=== PATIENT | female | born 1990 | race Two or more races ===

== ENCOUNTER 2025-04-12 22:34 | Emergency (ER) | payer OTHER, SELFPAY ==
--- OUTSIDE RECORDS SUMMARY | 2014-01-08 11:26 | XMS_ITS | Continuity of Care Document ---
Author Organization [facility] Address [address] [place] [address] Phone Care Team Providers Care Edge Stainer Name Role Phone Unavailable Unavailable Unavailable Allergies, [...] Diagnoses Date Provider Providers Copied on Encounter [facility] , [address] [place] [address], [id number] , [place] tel: [phone] [facility] No Information 4 No Information [facility] , [address] [place] [address], [id number] , [place] tel: [phone] [facility] routine (chief complaint)l eft without being seen (chief complaint) Dysuria 4 No Information OFFICE/OUTPA TIENT VISIT, [facility] , [address] [place] [address], [id number] , [place] tel: [phone] [facility] ER visit (chief complaint) Supervision of other normal 4 No Information OFFICE/OUTPA TIENT VISIT, [facility] , [address] [place] [address], [id number] , [place] tel: [phone] [facility] Supervision of other normal 4 No Information OFFICE/OUTPA TIENT VISIT, [facility] , [address] [place] [address], [id number] , [place] tel: [phone] [facility] 3hr GTT results (chief complaint)r verito (chief complaint)y east infection (chief complaint)n eeds vitamins (chief complaint) PregnancyContact dermatitis 4 No Information OFFICE/OUTPA TIENT VISIT, [facility] , [address] [place] [address], [id number] , [place] tel: [phone] [facility] vaginal discharge (chief complaint)O GTT in catagories (chief complaint) Supervision of other normal pregnancyAbnormal glucose tolerance of mother, antepartumRhesus isoimmunization, unspecified as to episode of care in 4 No Information OFFICE/OUTPA TIENT VISIT, [facility] , [address] [place] [address], [id number] , [place] tel:[phone] [facility] (chief complaint) Supervision of other normal 4 No Information OFFICE/OUTPA TIENT VISIT, [facility] , [address] [place] [address], [id number] , tel:[phone] [facility] vaginal discharge (chief complaint) Supervision of other normal 4 No Information OFFICE/OUTPA TIENT VISIT, [facility] , [address] [place] [address], [id number] , [place] tel: [phone] [facility] (chief complaint) Screening examination for unspecified bacterial and spirochetal diseasesSupervisi on of other normal 4 No Information OFFICE/OUTPA TIENT VISIT, [facility] , [address] [place] [address], [id number] , [place] tel: [phone] [facility] (chief complaint)n ausea (chief complaint) Supervision of other normal pregnancyMild hyperemesis gravidarum, unspecified as to episode of care 4 No Information OFFICE/OUTPA TIENT VISIT, [facility] , [address] [place] [address], [id number] , [place] tel:[phone] [facility] (chief complaint)v aginal discharge (chief complaint) examination or test, unconfirmedSuperv ision of other normal 4 No Information Family History Family Member Type Diagnosis Age At Onset No Information Payers Payer name Insurance type Covered republican ID Authoriza tion(s) No Information Social History Type Description Quantity Date Captured Comments Alcohol Use Details Unknown Caffeine Use Details Unknown Tobacco Use Status Smoking Status No Information Sex Female Yes - Patient is cur rently Chief Complaint And Reason For Visit No Information Reason For Referral Reason For Referral No Information Plan Of Treatment Date Type Action Status Referral Ordered: referred to Ostrich Farmer [facility] to Abnormal glucose tolerance of mother, antepartum) [id number] Ordered: Mary Simms OD (related to examination or test, unconfirm) [id number] Ordered: Varicella Appointment date/timeframe: 05/27/2013 [id number] Referred To: Mary Simms OD [address] [place], [address] [phone] Ordered: Referral: Mary Simms OD. Evaluate and [...]
[2025-04-12 22:41] VITALS: BP 121/78; PULSE 87; TEMP 36.6; O2SAT 97; BMI 33.2
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
--- OUTSIDE RECORDS SUMMARY | 2025-04-13 00:56 | XMS_ITS | Continuity of Care Document ---
Author Organization [facility] Address [facility] [address] [place] [address] Phone [phone] Care Team Providers Care Rn Staff Name Role Phone Jonny Castillo M.D. Care Team Information Rece iver Unavailable
--- OUTSIDE RECORDS SUMMARY | 2025-04-13 00:56 | XMS_ITS | Clinical Summary ---
Author Organization [facility] Address [address] [place] [address] Phone Care Team Providers Care Photo Journalist Name Role Phone Viktoriya Benavides COLD ROLLING COORDINATOR-[facility] Primary Care Provider [phone]- [phone] Allergies Active AllergyReactionsCriticalityNoted DateCommentsLactoseDiarrhea, Nausea/nrfjedco36/04/2859LbmfhapgoyQpuprpd79/19/2025PenicillinsUnknownLow 11/12/2011 Unknown reaction - patient stated this happened when she was very young; tolerates Keflex Unknown reaction - happened when she was very young Unknown reaction - happened when she was very young Medications MedicationSigDispense QuantityRefillsLast FilledStart DateEnd DateStatus ALPRAZolam (Xanax) 0.25 mg tablet Take 1 tablet (0.25 mg) by mouth 3 times a day.12/05/2023ctive ARIPiprazole (Abilify) 10 mg tablet Take 1 tablet (10 mg) by mouth once daily.Active buprenorphine-naloxone (Suboxone) 8-2 mg SL tablet DISSOLVE 1.5 TABS UNDER THE TONGUE ONCE DAILY08/24/2023ctive buPROPion XL (Wellbutrin XL) 150 mg 24 hr tablet TAKE 1 TABLET IN THE MORNING FOR 3 DAYS THEN INCREASE TO 2 TABLETS EVERY MORNING THEREAFTERActive dexmethylphenidate XR (Focalin XR) 30 mg 24 hr capsule Take 1 capsule (30 mg) by mouth early in the morning..11/29/2023ctive gabapentin (Neurontin) 600 mg tablet Take 1 tablet (600 mg) by mouth 3 times a day.Active metFORMIN XR 500 mg 24 hr tablet Take one tablet daily with dinner for 7 days, then increase to one tablet twice daily with breakfast and dinner.10/27/2023ctive omeprazole (PriLOSEC) [address] capsule TAKE 1 CAPSULE BY MOUTH TWO TIMES A DAY BEFORE MEALS.Active sertraline (Zoloft) 100 mg tablet Take 1 tablet (100 mg) by mouth once daily.Active topiramate (Topamax) 50 mg tablet Take one-half tablet daily at bedtime for 14 days, then increase to one tablet daily at bedtime.10/27/2023ctive lisdexamfetamine (Vyvanse) 40 mg capsule Take 1 capsule (40 mg) by mouth once daily in the morning.Active cyclobenzaprine (Flexeril) 5 mg tablet Indications:Left-sided low back pain without sciatica, unspecified chronicity Take 2 tablets (10 mg) by mouth every 8 hours if needed for muscle spasms for up to 15 doses. 15 tablet 01/31/2024ctive naproxen (Naprosyn) 500 mg tablet Indications:Left-sided low back pain without sciatica, unspecified chronicity Take 1 tablet (500 mg) by mouth every 12 hours if needed for mild pain (1 - 3) or moderate pain (4 - 6). 20 tablet 01/31/2024ctive ALPRAZolam (Xanax) 0.25 mg tablet Take 1 tablet (0.25 mg) by mouth 3 times a day.04/11/2024ctive ARIPiprazole (Abilify) 10 mg tablet Take 1 tablet (10 mg) by mouth once daily.03/24/2024ctive busPIRone (Buspar) 15 mg tablet 1 tablet (15 mg) 2 times a day.08/14/2023ctive buprenorphine-naloxone (Suboxone) 2-0.5 mg SL tablet 1 TABLET 4 TIMES A DAY 5 DAY08/14/2023ctive cyclobenzaprine (Flexeril) 5 mg tablet TAKE 2 TABLETS (10 MG) BY MOUTH EVERY 8 HOURS IF NEEDED FOR MUSCLE SPASMS FOR UP TO 15 DOSES.01/31/2024ctive Encounters DateTypeDepartmentCare XxqsYxnolrkemta67/28/2025 10:34 PM EDT - 03/19/2025 2:32 AM EDTEmergency [facility] [address] [place] [address] Mery Rendon MD Combs, Shauna M, Housing insecurity (Primary Dx); Pain of right hip Discharge Disposition: Homefrom Last 3 Months Social History Tobacco UseTypesPacks/DayYears UsedDateSmoking Tobacco: Every DayCigarettes Smokeless Tobacco: Current Tobacco Cessation:Ready to Q uit: Not Asked; Counseling Given: Not Answered Alcohol UseStandard Drinks/WeekCommentsNot Currently0 (1 standard drink = 0.6 oz pure alcohol)CommentsNoSex and Gender InformationValueDate RecordedSex Assigned at BirthNot on fileLegal EqqSsxqmf03/25/2022 7:26 PM ESTGender Identity Not on fileSexual OrientationNot on file Last Filed Vital Signs Vital SignReadingTime TakenCommentsBlood Zzlheooz616/6803/18/2025 9:50 PM EDT Skxre20227/28/2025 9:50 PM NGJLcfnotelzlk17.7 ??C (98.1 ??F)03/18/2025 9:50 PM EDTRespiratory Orqg9955 9:50 PM EDTOxygen Toyyfhniyr62%03/18/2025 9:50 PM EDTInhaled Oxygen Concentration--Noeasx43.8 kg (165 lb)03/18/2025 9:50 PM EDT Edceem384.4 cm (5')03/18/2025 9:50 PM EDTBody Mass Index32.221 9:50 PM EDT Plan of Treatment Health MaintenanceDue DateLast DoneCommentsLipid Panel1990MMR Vaccines (1 of 1 - Standard series)1991HPV/Cwsjjy2505/29/2011Yearly Adult Physical HPV Vaccines (3 - 3-dose series)/09/2023, 08/06/2016Influenza Vaccine (#1)2023, 03/21/2022, 05/22/2021, Additional history existsCOVID-19 Vaccine ( season)2025 07/25/2023, 05/05/2022, 03/07/2022, Additional history existsCervical Cancer Mfvtpiray15/19/2025Pap Smear512/2DTaP/Tdap/Td Vaccines (4 - Td or Tdap)/, 12/02/2014, 03/21/2000Zoster Vaccines (1 of 2) 2040HIV DigwtptmbHttyrfkku05/26/2022, 07/12/2017Meningococcal VaccineAged Out02/25/2022No longer eligible based on patient's age to complete this topic Pneumococcal Vaccine: Pediatrics and At-Risk Adult ZaqqfrxqNdepguskm01/17/2022 Hepatitis A VaccinesAged Out12/06/2022, 03/07/2022No longer eligible based on patient's age to complete this topicHepatitis B VbmmgaeiKwtxfqqvj08/18/2023, 05/05/2022, 03/08/2007, Additional history existsHIB VaccinesAged OutNo longer eligible based on patient's age to complete this topicIPV VaccinesAged OutNo longer eligible based on patient's age to complete this topicRotavirus Vaccines Aged OutNo longer eligible based on patient's age to complete this topic Medical Devices ImplantedTypeAreaManufacturerDevice IdentifierShelf Expiration DateModel / Serial / Harpreet Magdalena, 0.062 X 4 In, Stainless Steel Case [id number] Implanted:Qty: 2 on 04/15/2019 by Nitin Marrero MDImplantSKLNV [id number] / / Description:Converted from [facility]. Please see archived information for full log information. Procedures Procedure NamePriorityDate/TimeAssociated DiagnosisCommentsCT HEAD WO IV QMFWITEBRMVQ08/29/2025 1:02 AM EDT XR PELVIS 1 OR 2 OJDDQMSVE07/29/2025 12:51 AM EDT HUMAN CHORIONIC GONADOTROPIN, SERUM ERPQMOCQSUSBQSKQ2025 12:29 AM EDT COMPREHENSIVE METABOLIC FTBMVWECG41/29/2025 12:29 AM EDT CAVHFJW1803/19/2025 12:29 AM EDT HIV 1/2 ANTIGEN/ANTIBODY SCREEN WIH REFLEX TO LVETDVYTRVWWStuhnri79/26/2022 12:04 AM EST from Last 3 Months or Most Recently Relevant to Health Maintenance Results * CT head wo IV contrast (03/19/2025 1:02 AM EDT)Anatomical RegionLaterality ModalityNeuroComputed TomographySpecimen (Source)Anatomical Location / LateralityCollection Method / VolumeCollection TimeReceived Time03/19/2025 1:15 AM EDT1 1:15 AM EDT Impressions 03/19/2025 1:14 AM EDT No acute intracranial abnormality. ? MACRO: None ?? Signed by: Gianfranco Worrell 03/19/2025 1:14 AM Dictation workstation: ?? [id number] Narrative 03/19/2025 1:14 AM EDT Interpreted By: Gianfranco Worrell, STUDY: CT HEAD WO IV CONTRAST; ??03/19/2025 1:02 am ?? INDICATION: Signs/Symptoms:trauma. ?? COMPARISON: CT scan of the head 07/17/2021. ?? ACCESSION NUMBER(S): [id number] ?? ORDERING CLINICIAN: MERY RENDON ?? TECHNIQUE: Axial noncontrast CT images of the head. ?? FINDINGS: BRAIN PARENCHYMA: Bernal-white matter interfaces are preserved. No mass, mass effect or midline shift. ?? HEMORRHAGE: No acute intracranial hemorrhage. VENTRICLES and EXTRA-AXIAL SPACES: Normal size. EXTRACRANIAL SOFT TISSUES: Within normal limits. PARANASAL SINUSES/MASTOIDS: The visualized paranasal sinuses and mastoid air cells are aerated. CALVARIUM: No depressed skull fracture. No destructive osseous lesion. ?? OTHER FINDINGS: None. ?? Procedure Note Gianfranco Worrell MD - 03/19/2025 Interpreted By: Gianfranco Worrell, STUDY: CT HEAD WO IV CONTRAST; 03/19/2025 1:02 am INDICATION: Signs/Symptoms:trauma. COMPARISON: CT scan of the head 07/17/2021. ACCESSION NUMBER(S): [id number] ORDERING CLINICIAN: MERY RENDON TECHNIQUE: Axial noncontrast CT images of the head. FINDINGS: BRAIN PARENCHYMA: Bernal-white matter interfaces are preserved. No mass, mass effect or midline shift. HEMORRHAGE: No acute intracranial hemorrhage. VENTRICLES and EXTRA-AXIAL SPACES: Normal size. EXTRACRANIAL SOFT TISSUES: Within normal limits. PARANASAL SINUSES/MASTOIDS: The visualized paranasal sinuses and mastoid air cells are aerated. CALVARIUM: No depressed skull fracture. No destructive osseous lesion. OTHER FINDINGS: None. IMPRESSION: No acute intracranial abnormality. MACRO: None Signed by: Gianfranco Worrell 03/19/2025 1:14 AM Dictation workstation: [id number] Authorizing ProviderResult TypeResult StatusMery Rendon MDIMG CT PROCEDURES Final Result * XR pelvis 1-2 views (03/19/2025 12:51 AM EDT)Anatomical RegionLaterality ModalityMusculoskeletalComputed RadiographySpecimen (Source)Anatomical Location / LateralityCollection Method / VolumeCollection TimeReceived Time 03/19/2025 1:06 AM EDT1 1:06 AM EDT Impressions 03/19/2025 1:05 AM EDT No acute fracture. ? MACRO: None ?? Signed by: Gianfranco Worrell 03/19/2025 1:05 AM Dictation workstation: ?? [id number] Narrative 03/19/2025 1:05 AM EDT Interpreted By: Gianfranco Worrell, STUDY: XR PELVIS 1-2 VIEWS; ; ??03/19/2025 12:51 am ?? INDICATION: Signs/Symptoms:trauma. ? COMPARISON: Pelvic x-ray 12/12/2013. ?? ACCESSION NUMBER(S): [id number] ?? ORDERING CLINICIAN: MERY RENDON ?? FINDINGS: AP view of the pelvis is obtained. ?? Bones are well mineralized. No acute fracture dislocation. Lower lumbar spine, SI joints and symphysis pubis are unremarkable. ?? Soft tissues are within normal limits. ?? Procedure Note Gianfranco Worrell MD - 03/19/2025 Interpreted By: Gianfranco Worrell, STUDY: XR PELVIS 1-2 VIEWS; ; 03/19/2025 12:51 am INDICATION: Signs/Symptoms:trauma. COMPARISON: Pelvic x-ray 12/12/2013. ACCESSION NUMBER(S): [id number] ORDERING CLINICIAN: MERY RENDON FINDINGS: AP view of the pelvis is obtained. Bones are well mineralized. No acute fracture dislocation. Lower lumbar spine, SI joints and symphysis pubis are unremarkable. Soft tissues are within normal limits. IMPRESSION: No acute fracture. MACRO: None Signed by: Gianfranco Worrell 03/19/2025 1:05 AM Dictation workstation: [id number] Authorizing ProviderResult TypeResult StatusFarkayli Rendon MDIMG XR PROCEDURES Final Result * (ABNORMAL) CBC (03/19/2025 12:29 AM EDT)ComponentValueRef RangeTest Method Analysis TimePerformed AtPathologist SignatureWBC5.94.4 - 11.3 x10*3/uL LAB HEMATOLOGY METHOD 03/19/2025 1:12 AM [facility] LABnRBC0.00.0 - 0.0 /100 WBCs LAB HEMATOLOGY METHOD 03/19/2025 1:12 AM [facility] LABRBC4.424.00 - 5.20 x10*6/uL LAB HEMATOLOGY METHOD 03/19/2025 1:12 AM [facility] UXWYwlmonkssq80.9(L)12.0 - 16.0 g/dL LAB HEMATOLOGY METHOD 03/19/2025 1:12 AM [facility] UXZFwujzldvif92.5(L)36.0 - 46.0 % LAB HEMATOLOGY METHOD 03/19/2025 1:12 AM [facility] BXZMAP1073 - 100 fL LAB HEMATOLOGY METHOD 03/19/2025 1:12 AM [facility] RYDBJO08.926.0 - 34.0 pg LAB HEMATOLOGY METHOD 03/19/2025 1:12 AM [facility] GVLCMEZ36.532.0 - 36.0 g/dL LAB HEMATOLOGY METHOD 03/19/2025 1:12 AM [facility] TDXZPU76.211.5 - 14.5 % LAB HEMATOLOGY METHOD 03/19/2025 1:12 AM [facility] PUGJrupqvajx272620 - 450 x10*3/uL LAB HEMATOLOGY METHOD 03/19/2025 1:12 AM [facility] LABSpecimen (Source)Anatomical Location / Laterality Collection Method / VolumeCollection TimeReceived TimeBloodVenous blood specimen / UnknownVenipuncture / Gnawosz6003/19/2025 12:29 AM EDT1 1:02 AM EDT Narrative Authorizing ProviderResult TypeResult StatusMery DOWELL BLOOD ORDERABLES Final ResultPerforming OrganizationAddressCity/State/ZIP CodePhone Number [facility] [address] [phone] * hCG, quantitative, (03/19/2025 12:29 AM EDT)ComponentValueRef Range Test MethodAnalysis TimePerformed AtPathologist SignatureHCG, Beta-Quantitative4<5 mIU/mL LAB IMMUNOASSAY METHOD 03/19/2025 1:31 AM [facility] LABSpecimen (Source)Anatomical Location / Laterality Collection Method / VolumeCollection TimeReceived TimeBloodVenous blood specimen / UnknownVenipuncture / Vrwrhnq2403/19/2025 12:29 AM EDT1 1:02 AM EDT Narrative [facility] - 03/19/2025 1:31 AM EDT Total HCG measurement is performed using the Siemens Atellica immunoassay which detects intact HCG and free beta HCG subunit. This test is not indicated for use as a tumor marker. HCG testing is performed using a different test methodology at [facility] than other [facility]. Direct result comparison should only be made within the same method. ?? Authorizing ProviderResult TypeResult StatusMery DOWELL BLOOD ORDERABLES Final ResultPerforming OrganizationAddressCity/State/ZIP CodePhone Number [facility] [address] [place], [place] [phone] * (ABNORMAL) Comprehensive metabolic panel (03/19/2025 12:29 AM EDT)Component ValueRef RangeTest MethodAnalysis TimePerformed AtPathologist SignatureGlucose 100(H)74 - 99 mg/dL LAB CHEMISTRY METHOD 03/19/2025 1:32 AM [facility] XVBHadpaj533749 - 145 mmol/L LAB CHEMISTRY METHOD 03/19/2025 1:32 AM [facility] LABPotassium3.4(L)3.5 - 5.3 mmol/L LAB CHEMISTRY METHOD 03/19/2025 1:32 AM [facility] RKTHmopmzsy51524 - 107 mmol/L LAB CHEMISTRY METHOD 03/19/2025 1:32 AM [facility] FGNZyqdnnrzdej6808 - 32 mmol/L LAB CHEMISTRY METHOD 03/19/2025 1:32 AM [facility] LABComment:Bicarbonate results may be falsely elevated when Lactate Dehydrogenase (LDH) concentrations exceed 2,000 U/L due to a temporary reagent manufacturing issue. If significantly elevated LDH levels are suspected, interpret bicarbonate results with caution, correlate with the patient???s clinical status, and consider confirming CO2 values using a blood gas analyzer.Anion Nzl7754 - 20 mmol/L LAB CHEMISTRY METHOD 03/19/2025 1:32 AM [facility] LABUrea Fltdvenn882 - 23 mg/dL LAB CHEMISTRY METHOD 03/19/2025 1:32 AM [facility] LABCreatinine0.540.50 - 1.05 mg/dL LAB CHEMISTRY METHOD 03/19/2025 1:32 AM [facility] LABeGFR>90>60 mL/min/1.73m*2 LAB CHEMISTRY METHOD 03/19/2025 1:32 AM [facility] LABComment: Calculations of estimated GFR are performed using the 2020 CKD-EPI Study Refit equation without therace variable for the IDMS-Traceable creatinine methods. https://jasn.asnjournals.org/content///ASN.3286153037 Calcium8.98.6 - 10.6 mg/dL LAB CHEMISTRY METHOD 03/19/2025 1:32 AM [facility] LABAlbumin3.73.4 - 5.0 g/dL LAB CHEMISTRY METHOD 03/19/2025 1:32 AM [facility] LABAlkaline Lcduphterir2603 - 110 U/L LAB CHEMISTRY METHOD 03/19/2025 1:32 AM [facility] LABTotal Protein6.3(L)6.4 - 8.2 g/dL LAB CHEMISTRY METHOD 03/19/2025 1:32 AM [facility] HERICF358 - 39 U/L LAB CHEMISTRY METHOD 03/19/2025 1:32 AM [facility] LABBilirubin, Total0.70.0 - 1.2 mg/dL LAB CHEMISTRY METHOD 03/19/2025 1:32 AM [facility] ARYVJO335 - 45 U/L LAB CHEMISTRY METHOD 03/19/2025 1:32 AM [facility] LABComment:Patients treated with Sulfasalazine may generate falsely decreased results for ALT.Specimen (Source)Anatomical Location / LateralityCollection Method / VolumeCollection TimeReceived TimeBloodVenous blood specimen / UnknownVenipuncture / Twvptxs6003/19/2025 12:29 AM EDT1 1:02 AM EDT Narrative Authorizing ProviderResult TypeResult StatusFarnia Jovanny [facility] BLOOD ORDERABLES Final ResultPerforming OrganizationAddressCity/State/[place] [address] * HIV 1/2 Antigen/Antibody Screen with Reflex to Confirmation (07/17/2021 12:04 AM EST)ComponentValueRef RangeTest MethodAnalysis TimePerformed AtPathologist SignatureHIV 1 and 2 ScreenNONREACTIVENONREACTIVEUPPER [facility]LE[facility] LABComment: HIV Ag/Ab screen is performed using the Siemens Atellica HIV Ag/Ab Combo assay which detects the presence of HIV p24 antigen as well as antibodies to HIV-1 (Group M and O) and HIV-2. . No laboratory evidence of HIV infection. If acute HIV infection is suspected, consider testing for HIV RNA by PCR (viral load). Specimen (Source)Anatomical Location / LateralityCollection Method / Volume Collection TimeReceived Time07/17/2021 12:04 AM EST07/17/2021 12:09 PM EST Narrative Authorizing ProviderResult TypeResult StatusJonattim E Brian DOLAB BLOOD ORDERABLESFinal ResultPerforming OrganizationAddressCity/State/ZIP CodePhone Number [facility] [address] [phone] from Last 3 Months or Most Recently Relevant to Health Maintenance Insurance * Guarantor: Genoveva Angeles TypeRelation to PatientDate of BirthPhone Billing AddressPersonal/OdheekAmzi17/08/1991 [address] [id number] * Guarantor: Genoveva Angeles TypeRelation to PatientDate of BirthPhone Billing AddressPersonal/XjdrbeGcnz43/08/1991 [address] [phone] Care Teams Team MemberRelationshipSpecialtyStart DateEnd Date Viktoriya Benavides, COLD ROLLING COORDINATOR-[employer]OTION PICTURE PROJECTIONIST [address] [place] [address] [facility]
--- OUTSIDE RECORDS SUMMARY | 2025-04-13 00:56 | XMS_ITS | Patient Health Record ---
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
[2025-04-13 06:33] VITALS: BP 90/49; PULSE 90; O2SAT 98
[2025-04-13] MEDS: ARIPIPRAZOLE 5 MG TABLET 10 MG PO (06:37)
[2025-04-13] MEDS: CITALOPRAM HYDROBROMIDE 20 MG TABLET PO (06:37)
== END 2025-04-13 06:55 | disposition home or self-care (01) ==
PROVIDERS: Emergency Provider Internal Medicine
DX: F31.9 Bipolar disorder, unspecified (principal); Z59.00 Homelessness unspecified; Z79.899 Other long term (current) drug therapy; S93.601A Unspecified sprain of right foot, initial encounter; S93.401A Sprain of unspecified ligament of right ankle, initial encounter; V03.10XA Pedestrian on foot injured in collision with car, pick-up truck or van in traffic accident, initial encounter
CPT/HCPCS: 73610; 73630; 99283

== ENCOUNTER 2025-04-13 19:58 | Emergency (ER) | payer SELFPAY ==
--- OUTSIDE RECORDS SUMMARY | 2014-01-08 11:26 | XMS_ITS | Continuity of Care Document ---
Author Organization [facility] Address [address] [place] [address] Phone Care Team Providers Care Tetryl Blender Operator Name Role Phone Unavailable Unavailable Unavailable Allergies, Adverse Reactions, Alerts Substance Reaction Status Criticality Penicillins (mild) Active No Information Medications Medication Instructions Dosage Effective Dates (start - stop) Status Comments RhoGAM Ultra-Filtered PLUS 1,500 unit (300 mcg) intramuscular syringe inject 1 syringe by intramuscular route once - Active Plus 27 mg-1 mg tablet take 1 tablet by oral route every day - Active FLEXERIL (unknown strength) take 1 tablet by oral route 3 times every day as needed Not Available - Active Procedures Procedure Date URINALYSIS NONAUTO W/O SCOPE OFFICE/OUTPATIENT VISIT, EST URINALYSIS NONAUTO W/O SCOPE OFFICE/OUTPATIENT VISIT, EST URINALYSIS NONAUTO W/O SCOPE OFFICE/OUTPATIENT VISIT, EST URINALYSIS NONAUTO W/O SCOPE OFFICE/OUTPATIENT VISIT, EST URINALYSIS NONAUTO W/O SCOPE OFFICE/OUTPATIENT VISIT, EST URINALYSIS NONAUTO W/O SCOPE OFFICE/OUTPATIENT VISIT, EST URINALYSIS NONAUTO W/O SCOPE OFFICE/OUTPATIENT VISIT, EST OFFICE/OUTPATIENT VISIT, EST URINE TEST OFFICE/OUTPATIENT VISIT, NEW Advance Directives Directive Yes / No Effective Date File Name No Information Encounters Encounter Description Practice Location Reason(s) For Visit Diagnoses Date Provider Providers Copied on Encounter [facility] , [address] [place] [address], [id number] , [place] tel: [phone] [facility] No Information 4 No Information [facility] , [address] [place] [address], [id number] , [place] tel: [phone] [facility] routine (chief complaint)l eft without being seen (chief complaint) Dysuria 4 No Information OFFICE/OUTPA TIENT VISIT, [facility] , [address] [place] [address], [id number] , [place] tel: [phone] [facility] ER visit (chief complaint) Supervision of other normal 4 No Information OFFICE/OUTPA TIENT VISIT, [facility] , [address] [place] [address], [id number] , [place] tel: [phone] [facility] Supervision of other normal 4 No Information OFFICE/OUTPA TIENT VISIT, [facility] , [address] [place] [address], [id number] , [place] tel: [phone] [facility] 3hr GTT results (chief complaint)r verito (chief complaint)y east infection (chief complaint)n eeds vitamins (chief complaint) PregnancyContact dermatitis 4 No Information OFFICE/OUTPA TIENT VISIT, [facility] , [address] [place] [address], [id number] , [place] tel: [phone] [facility] vaginal discharge (chief complaint)O GTT in catagories (chief complaint) Supervision of other normal pregnancyAbnormal glucose tolerance of mother, antepartumRhesus isoimmunization, unspecified as to episode of care in 4 No Information OFFICE/OUTPA TIENT VISIT, [facility] , [address] [place] [address], [id number] , [place] tel:[phone] [facility] (chief complaint) Supervision of other normal 4 No Information OFFICE/OUTPA TIENT VISIT, [facility] , [address] [place] [address], [id number] , tel:[phone] [facility] vaginal discharge (chief complaint) Supervision of other normal 4 No Information OFFICE/OUTPA TIENT VISIT, [facility] , [address] [place] [address], [id number] , [place] tel: [phone] [facility] (chief complaint) Screening examination for unspecified bacterial and spirochetal diseasesSupervisi on of other normal 4 No Information OFFICE/OUTPA TIENT VISIT, [facility] , [address] [place] [address], [id number] , [place] tel: [phone] [facility] (chief complaint)n ausea (chief complaint) Supervision of other normal pregnancyMild hyperemesis gravidarum, unspecified as to episode of care 4 No Information OFFICE/OUTPA TIENT VISIT, [facility] , [address] [place] [address], [id number] , [place] tel:[phone] [facility] (chief complaint)v aginal discharge (chief complaint) examination or test, unconfirmedSuperv ision of other normal 4 No Information Family History Family Member Type Diagnosis Age At Onset No Information Payers Payer name Insurance type Covered libertarian ID Authoriza tion(s) No Information Social History Type Description Quantity Date Captured Comments Alcohol Use Details Unknown Caffeine Use Details Unknown Tobacco Use Status Smoking Status No Information Sex Female Yes - Patient is cur rently Chief Complaint And Reason For Visit No Information Reason For Referral Reason For Referral No Information Plan Of Treatment Date Type Action Status Referral Ordered: referred to Registered Nurse First Assistant [facility] (related to Abnormal glucose tolerance of mother, antepartum) [id number] Ordered: Mary Simms OD (related to examination or test, unconfirm) [id number] Ordered: Varicella Appointment date/timeframe: 05/27/2013 [id number] Referred To: Mary Simms OD [address] [place], [address] [phone] Ordered: Referral: Mary Simms OD. Evaluate and treat. ordered History Of Present Illness Encounter Date Complaint History Of Prese nt Illness left without being seen routine Pt here for pre ntal visit. Pt was seen in ER last for a fall. Pt states no ultrasound done, stress test done d/t elevated HR which returned to normal with a couple hours. Pt denies bleeding after incident. Functional Status Date Functional Assessmen t No Information Instructions Date Instruction Additional Infor mation No Information Assessments Type Assessment Date No Information Patient Care Teams Name Effective Dates (start - stop) Status Members No Information
[2025-04-13 19:59] VITALS: BP 120/81; PULSE 82; TEMP 36.6; O2SAT 100; BMI 33.2
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
[2025-04-13] MEDS: IBUPROFEN 400 MG TABLET 800 MG PO (20:53)
--- OUTSIDE RECORDS SUMMARY | 2025-04-13 21:03 | XMS_ITS | Clinical Summary ---
Author Organization [facility] Address [address] [place] [address] Phone Care Team Providers Care Departmental Secretary Name Role Phone Viktoriya Benavides RENTAL COORDINATOR-[facility] Primary Care Provider [phone] Allergies Active AllergyReactionsCriticalityNoted DateCommentsLactoseDiarrhea, Nausea/aihndfni75/04/5102TobqtdvcujFlkmwwa09/19/2025PenicillinsUnknownLow 11/12/2011 Unknown reaction - patient stated this [...] FOR UP TO 15 DOSES.01/31/2024ctive Encounters DateTypeDepartmentCare TlfbGnxilpcrllg08/28/2025 10:34 PM EDT - 03/19/2025 2:32 AM EDTEmergency [facility] [address] [place] [address] Mery Rendon MD Combs, Shauna M, Housing insecurity (Primary Dx); Pain of right hip Discharge Disposition: Homefrom Last 3 Months Social History Tobacco UseTypesPacks/DayYears UsedDateSmoking Tobacco: Every DayCigarettes Smokeless Tobacco: Current Tobacco Cessation:Ready to Q uit: Not Asked; Counseling Given: Not Answered Alcohol UseStandard Drinks/WeekCommentsNot Currently0 (1 standard drink = 0.6 oz pure alcohol)CommentsNoSex and Gender InformationValueDate RecordedSex Assigned at BirthNot on fileLegal MfnTmdwlr52/25/2022 7:26 PM ESTGender Identity Not on fileSexual OrientationNot on file Last Filed Vital Signs Vital SignReadingTime TakenCommentsBlood Nrjrqblz191/6803/18/2025 9:50 PM EDT Oxhwz79068/28/2025 9:50 PM BSEEdciyexrcuw49.7 ??C (98.1 ??F)03/18/2025 9:50 PM EDTRespiratory Ypjf5143 9:50 PM EDTOxygen Sdpcbsefrf13%03/18/2025 9:50 PM EDTInhaled Oxygen Concentration--Jjscgr50.8 kg (165 lb)03/18/2025 9:50 PM EDT Fqkvfi638.4 cm (5')03/18/2025 9:50 PM EDTBody Mass Index32.221 9:50 PM EDT Plan of Treatment Health MaintenanceDue DateLast DoneCommentsLipid Panel1990MMR Vaccines (1 of 1 - Standard series)1991HPV/Wbuujb5905/29/2011Yearly Adult Physical HPV Vaccines (3 - 3-dose series)/09/2023, 08/06/2016Influenza Vaccine (#1)2023, 03/21/2022, 05/22/2021, Additional history existsCOVID-19 Vaccine ( season)2025 07/25/2023, 05/05/2022, 03/07/2022, Additional history existsCervical Cancer Rslciahps25/19/2025Pap Smear512/2DTaP/Tdap/Td Vaccines (4 - Td or Tdap)/, 12/02/2014, 03/21/2000Zoster Vaccines (1 of 2) 2040HIV JmlsuyosuZqpkntjwo35/26/2022, 07/12/2017Meningococcal VaccineAged Out02/25/2022No longer eligible based on patient's age to complete this topic Pneumococcal Vaccine: Pediatrics and At-Risk Adult CsbkjxbwMkbwnipyt28/17/2022 Hepatitis A VaccinesAged Out12/06/2022, 03/07/2022No longer eligible based on patient's age to complete this topicHepatitis B JopwyqtxAxcbogxne60/18/2023, 05/05/2022, 03/08/2007, Additional history existsHIB VaccinesAged OutNo longer eligible based on patient's age to complete this topicIPV VaccinesAged OutNo longer eligible based on patient's age to complete this topicRotavirus Vaccines Aged OutNo longer eligible based on patient's age to complete this topic Medical Devices ImplantedTypeAreaManufacturerDevice IdentifierShelf Expiration DateModel / Serial / Harpreet Magdalena, 0.062 X 4 In, Stainless Steel Case [id number] Implanted:Qty: 2 on 04/15/2019 by Nitin Marrero MDImplantSKLKS [id number] / / Description:Converted from [facility]. Please see archived information for full log information. Procedures Procedure NamePriorityDate/TimeAssociated DiagnosisCommentsCT HEAD WO IV RLFOWEMMRPWE53/29/2025 1:02 AM EDT XR PELVIS 1 OR 2 WSEMRWOMQ54/29/2025 12:51 AM EDT HUMAN CHORIONIC GONADOTROPIN, SERUM UJFHDRFKGWEGCEAM74/29/2025 12:29 AM EDT COMPREHENSIVE METABOLIC NKAOMZXHO96/29/2025 12:29 AM EDT IGVYHCJ7203/19/2025 12:29 AM EDT HIV 1/2 ANTIGEN/ANTIBODY SCREEN WIH REFLEX TO UXJRVPESAQUKNmyddji33/26/2022 12:04 AM EST from Last 3 Months [...] Worrell 03/19/2025 1:14 AM Dictation workstation: ?? [id number] Narrative 03/19/2025 1:14 AM EDT Interpreted By: Gianfranco Worrell, STUDY: CT HEAD WO IV CONTRAST; ??03/19/2025 1:02 am ?? INDICATION: Signs/Symptoms:trauma. ?? COMPARISON: CT scan of the head 07/17/2021. ?? ACCESSION NUMBER(S): [id number] ?? ORDERING CLINICIAN: MERY RENDON ?? TECHNIQUE: [...] scan of the head 07/17/2021. ACCESSION NUMBER(S): [id number] ORDERING CLINICIAN: MERY RENDON TECHNIQUE: Axial noncontrast [...] Gianfranco Worrell 03/19/2025 1:14 AM Dictation workstation: [id number] Authorizing ProviderResult TypeResult StatusMery Rendon MDIMG CT PROCEDURES Final Result * XR pelvis 1-2 views (03/19/2025 12:51 AM EDT)Anatomical RegionLaterality ModalityMusculoskeletalComputed RadiographySpecimen (Source)Anatomical Location / LateralityCollection Method / VolumeCollection TimeReceived Time 03/19/2025 1:06 AM EDT1 1:06 AM EDT Impressions 03/19/2025 1:05 AM EDT No acute fracture. ? MACRO: None ?? Signed by: Gianfranco Worrell 03/19/2025 1:05 AM Dictation workstation: ?? [id number] Narrative 03/19/2025 1:05 AM EDT Interpreted By: Gianfranco Worrell, STUDY: XR PELVIS 1-2 VIEWS; ; ??03/19/2025 12:51 am ?? INDICATION: Signs/Symptoms:trauma. ? COMPARISON: Pelvic x-ray 12/12/2013. ?? ACCESSION NUMBER(S): [id number] ?? ORDERING CLINICIAN: MERY RENDON ?? FINDINGS: [...] Signs/Symptoms:trauma. COMPARISON: Pelvic x-ray 12/12/2013. ACCESSION NUMBER(S): [id number] ORDERING CLINICIAN: MERY RENDON FINDINGS: AP view of the pelvis is obtained. Bones are well mineralized. No acute fracture dislocation. Lower lumbar spine, SI joints and symphysis pubis are unremarkable. Soft tissues are within normal limits. IMPRESSION: No acute fracture. MACRO: None Signed by: Gianfranco Worrell 03/19/2025 1:05 AM Dictation workstation: [id number] Authorizing ProviderResult TypeResult StatusFarkayli Rendon MDIMG XR PROCEDURES Final Result * (ABNORMAL) CBC (03/19/2025 12:29 AM EDT)ComponentValueRef RangeTest Method Analysis TimePerformed AtPathologist SignatureWBC5.94.4 - 11.3 x10*3/uL LAB HEMATOLOGY METHOD 03/19/2025 1:12 AM [facility] LABnRBC0.00.0 - 0.0 /100 WBCs LAB HEMATOLOGY METHOD 03/19/2025 1:12 AM [facility] LABRBC4.424.00 - 5.20 x10*6/uL LAB HEMATOLOGY METHOD 03/19/2025 1[facility] NWFJpchnzjvod61.9(L)12.0 - 16.0 g/dL LAB HEMATOLOGY METHOD 03/19/2025 1:12 [facility] RTMJqhxozgfuw45.5(L)36.0 - 46.0 % LAB HEMATOLOGY METHOD 03/19/2025 1:12 [facility] MUUFXP6225 - 100 fL LAB HEMATOLOGY METHOD 03/19/2025 1:12 AM [facility] QXLDBL56.926.0 - 34.0 pg LAB HEMATOLOGY METHOD 03/19/2025 1:12 AM [facility] TPSTYUF41.532.0 - 36.0 g/dL LAB HEMATOLOGY METHOD 03/19/2025 1:12 AM [facility] OXSBSC73.211.5 - 14.5 % LAB HEMATOLOGY METHOD 03/19/2025 1:12 AM [facility] YGQJtatswren389043 - 450 x10*3/uL LAB HEMATOLOGY METHOD 03/19/2025 1:12 AM [facility] LABSpecimen (Source)Anatomical Location / Laterality Collection Method / VolumeCollection TimeReceived TimeBloodVenous blood specimen / UnknownVenipuncture / Kuvdrse2003/19/2025 12:29 AM EDT1 1:02 AM EDT Narrative Authorizing ProviderResult TypeResult StatusMery DOWELL BLOOD ORDERABLES Final ResultPerforming OrganizationAddressCity/State/ZIP CodePhone Number [facility] [address] [phone] * hCG, quantitative, (03/19/2025 12:29 AM EDT)ComponentValueRef Range Test MethodAnalysis TimePerformed AtPathologist SignatureHCG, Beta-Quantitative4<5 mIU/mL LAB IMMUNOASSAY METHOD 03/19/2025 1:31 AM [facility] LABSpecimen (Source)Anatomical Location / Laterality Collection Method / VolumeCollection TimeReceived TimeBloodVenous blood specimen / UnknownVenipuncture / Xffvigy2503/19/2025 12:29 AM EDT1 1:02 AM EDT Narrative [facility] - 03/19/2025 1:31 AM EDT Total HCG measurement is performed using the Siemens Atellica immunoassay which detects intact HCG and free beta HCG subunit. This test is not indicated for use as a tumor marker. HCG testing is performed using a different test methodology at [facility] than other [facility]. Direct result comparison should only be made within the same method. ?? Authorizing ProviderResult TypeResult StatusMery DOWELL BLOOD ORDERABLES Final ResultPerforming OrganizationAddressCity/State/ZIP CodePhone Number [facility] [address] [place], [place] [id number] * (ABNORMAL) Comprehensive metabolic panel (03/19/2025 12:29 AM EDT)Component ValueRef RangeTest MethodAnalysis TimePerformed AtPathologist SignatureGlucose 100(H)74 - 99 mg/dL LAB CHEMISTRY METHOD 03/19/2025 1:32 AM [facility] LAOCemwmh709889 - 145 mmol/L LAB CHEMISTRY METHOD 03/19/2025 1:32 AM [facility] LABPotassium3.4(L)3.5 - 5.3 mmol/L LAB CHEMISTRY METHOD 03/19/2025 1:32 AM [facility] NDKXhxcetaw99696 - 107 mmol/L LAB CHEMISTRY METHOD 03/19/2025 1:32 AM [facility] JTZLklzxvnoozs5219 - 32 mmol/L LAB CHEMISTRY METHOD 03/19/2025 1:32 AM [facility] LABComment:Bicarbonate results may be falsely elevated when Lactate Dehydrogenase (LDH) concentrations exceed 2,000 U/L due to a temporary reagent manufacturing issue. If significantly elevated LDH levels are suspected, interpret bicarbonate results with caution, correlate with the patient???s clinical status, and consider confirming CO2 values using a blood gas analyzer.Anion Utw3151 - 20 mmol/L LAB CHEMISTRY METHOD 03/19/2025 1:32 AM [facility] LABUrea Vndatsgi316 - 23 mg/dL LAB CHEMISTRY METHOD 03/19/2025 1:32 AM [facility] LABCreatinine0.540.50 - 1.05 mg/dL LAB CHEMISTRY METHOD 03/19/2025 1:32 AM [facility] LABeGFR>90>60 mL/min/1.73m*2 LAB CHEMISTRY METHOD 03/19/2025 1:32 AM [facility] LABComment: Calculations of estimated GFR are performed using the 2020 CKD-EPI Study Refit equation without therace variable for the IDMS-Traceable creatinine methods. https://jasn.asnjournals.org/content///ASN.2387276214 Calcium8.98.6 - 10.6 mg/dL LAB CHEMISTRY METHOD 03/19/2025 1:32 AM [facility] LABAlbumin3.73.4 - 5.0 g/dL LAB CHEMISTRY METHOD 03/19/2025 1:32 AM [facility] LABAlkaline Tojvhypfeji4300 - 110 U/L LAB CHEMISTRY METHOD 03/19/2025 1:32 AM [facility] LABTotal Protein6.3(L)6.4 - 8.2 g/dL LAB CHEMISTRY METHOD 03/19/2025 1:32 AM [facility] DWPQGG992 - 39 U/L LAB CHEMISTRY METHOD 03/19/2025 1:32 AM [facility] LABBilirubin, Total0.70.0 - 1.2 mg/dL LAB CHEMISTRY METHOD 03/19/2025 1:32 AM [facility] QRJQWR172 - 45 U/L LAB CHEMISTRY METHOD 03/19/2025 1:32 AM [facility] LABComment:Patients treated with Sulfasalazine may generate falsely decreased results for ALT.Specimen (Source)Anatomical Location / LateralityCollection Method / VolumeCollection TimeReceived TimeBloodVenous blood specimen / UnknownVenipuncture / Vcpxdfc2303/19/2025 12:29 AM EDT1 1:02 AM EDT Narrative Authorizing ProviderResult TypeResult StatusFarnia Jovanny [facility] BLOOD ORDERABLES Final ResultPerforming OrganizationAddressCity/State/[place] [address] * HIV 1/2 Antigen/Antibody Screen with Reflex to Confirmation (07/17/2021 12:04 AM EST)ComponentValueRef RangeTest MethodAnalysis TimePerformed AtPathologist SignatureHIV 1 and 2 ScreenNONREACTIVENONREACTIVESELECT [facility]TY [facility] LABComment: HIV Ag/Ab screen is performed using [...] DOLAB BLOOD ORDERABLESFinal ResultPerforming OrganizationAddressCity/State/ZIP CodePhone Number [facility] [address] [phone] from Last 3 Months or Most Recently Relevant to Health Maintenance Insurance * Guarantor: Genoveva Angeles TypeRelation to PatientDate of BirthPhone Billing AddressPersonal/DxsevsKjix46/08/1991 [address] [phone] * Guarantor: Genoveva Angeles TypeRelation to PatientDate of BirthPhone Billing AddressPersonal/OjgemzVfie66/08/1991 [address] [id number] Care Teams Team MemberRelationshipSpecialtyStart DateEnd Date Viktoriya Benavides, RENTAL COORDINATOR-[employer]IAL MEDIA INTERN [address] [place] [address] [facility]
--- OUTSIDE RECORDS SUMMARY | 2025-04-13 21:03 | XMS_ITS | Patient Health Record ---
Author Organization [facility] Address [address] [place] [address] Care Team Providers Care Doula Name Role Phone DEN CHEATHAM Adri [phone] Reason For Referral No Information Social History Sex Assigned At : Social History Observation Description Sex Assigned At Female Plan Of Treatment No Information Insurance Providers Payer Name Payer Address Payer Phone Subscriber Number Group Number Insured Name Patient Relationship to Insured Coverage Start Date Coverage End Date [facility] SREE RODRIGUEZ [address] [place] [address] [id number] OCASIO - patient is the [id number] 2023
--- OUTSIDE RECORDS SUMMARY | 2025-04-13 21:03 | XMS_ITS | Continuity of Care Document ---
Author Organization [facility] Address [facility] [address] [place] [address] Phone [phone] Care Team Providers Care Automobile Taillight Assembler Name Role Phone Jonny Castillo M.D. Care Team Information Rece iver Unavailable
--- NOTE | 2025-04-13 21:33 | PC.NURSE ---
2 4in frederick bandage wraps applied to pt's affected ankle and up calf air cast applied and directions given to patient on how to utilize this device pt verbalized understanding
== END 2025-04-13 21:50 | disposition home or self-care (01) ==
PROVIDERS: Emergency Provider Emergency Medicine
DX: S93.401A Sprain of unspecified ligament of right ankle, initial encounter (principal); S93.601A Unspecified sprain of right foot, initial encounter; V03.10XA Pedestrian on foot injured in collision with car, pick-up truck or van in traffic accident, initial encounter
CPT/HCPCS: 73610; 73630; 99283